=== PATIENT | female | born 1975 | race Hispanic/Latino ===

== ENCOUNTER 2016-06-09 11:26 | Emergency (ER) | payer SELFPAY ==
[~2016-06-09] VITALS: Ht 144.8 cm; Wt 73.1 kg
[~2016-06-09 11:26] MED LIST: NOMED; PREN1TAB47 PO
[2016-06-09 11:41] VITALS: BP 101/65; PULSE 75; RESP 16; O2SAT 100
--- NOTE | 2016-06-09 12:04 | ED.REPORT ---
HPI- Female Date of Service Jun 09, 2016 ED Provider: Jamaal Hughes PA-C Mary is a 40-year-old Indian-speaking female with a history of hyperlipidemia who presents with a chief complaint of vaginal pain. She reports she noted itching and burning approximately 4 days ago associated with dysuria. Yesterday she noticed "white cheese-like discharge." She has never had this before. Denies fever, chills, malaise, abdominal pain, vomiting, diarrhea, vaginal bleeding, hematuria. History gathered with the help of [employer] #[id number] as well as [employer] #[id number] Nursing Notes Stated Complaint: PRIVATE AREA HURTS AND STINGS Chief Complaint: General Complaint Nursing Notes Reviewed: No Allergies: Uncoded Allergies: NKA (Allergy, Unknown, 03/17/04) NKDA (Allergy, Unknown, 03/17/04) No Known Allergies (Allergy, Unknown, 03/17/04) Scheduled Doxycycline Hyclate (Doxycycline Hyclate) 100 Mg Tablet 100 MG PO BID General Time Seen by MD: 12:01 Chief Complaint Other (vaginal pain) Sudden in Onset?: No Past Medical History Past Medical History Denies Review of Systems Review of Systems Note: Negative unless stated otherwise in history of present illness Physical Exam General: Well appearing, well developed, obese, no acute distress. Head: Atraumatic, normocephalic. Eyes: No scleral icterus or injection. No discharge. Vision grossly intact. ENT: Voice clear, hearing grossly intact. Respiratory: Regular rate and rhythm. Breath sounds present, clear to auscultation and equal bilaterally. No respiratory distress. No increased work of breathing, speaks in complete sentences. Cardiovascular: Regular rate and rhythm, without murmur, gallop or rub. No pedal edema. Gastrointestinal: Obese abdomen non-tender without guarding or rebound. Bowel sounds normoactive. Back: Normal to inspection, mild right CVA tenderness. : Normal external genitalia, white curd-like discharge noted. Erythematous cervix, mall amount of bright red blood, copious yellow discharge. No lesions visualized. Negative cervical motion tenderness, adnexal tenderness. Normal adnexa palpated. Skin: Warm and dry. Neurological: Grossly nonfocal. Psychological: Alert and oriented. Speech appropriate, linear and logical. Behavior appropriate. Initial Vital Signs Vital Signs (First) Date Time Temp Pulse Resp B/P Pulse Ox O2 Delivery O2 Flow Rate FiO2 06/09/16 11:41 37.3 75 16 101/65 100 Room Air Initial VS: Reviewed, Vital signs normal Interpretation & Diagnostics Interpretation & Diagnostics: Wet Prep: ZULEIKA WET PREP VAG OR REC Final 06/09/16-1528 WBCS NONE SEEN YEAST NONE SEEN CLUE CELLS FEW TRICHOMONAS NONE SEEN Lab Results Interpretation Test 06/09/16 11:49 06/09/16 12:11 Urine Color Yellow (YELLOW) Urine Appearance Clear (CLEAR,HAZY) Urine pH 7.0 (5.0-8.0) Urine Specific [place] 1.024 (1.003-1.035) Urine Protein Negativemg/dL (NEG,TRACE) Urine Glucose (UA) Negativemg/dL (NEGATIVE) Urine Ketones Negativemg/dL (NEGATIVE) Urine Occult Blood Trace (NEGATIVE) Urine Nitrite Negative (NEGATIVE) Urine Bilirubin Negative (NEGATIVE) Urine Urobilinogen Normalmg/dL (NORMAL) Urine Leukocyte Esterase Moderate (NEGATIVE) Urine RBC 0-2/hpf (0-2) Urine WBC 11-50/hpf (0-5) Urine Epithelial Cells Moderate/hpf (NONE-MOD) Urine Crystals None seen (NONE SEEN) Urine Bacteria Moderate/hpf (NONE-FEW) Urine Hyaline Casts None/lpf (NONE) Urine Granular Casts None seen (NONE SEEN) Urine Waxy Casts None seen (NONE SEEN) Urine Red Blood Cell Casts None seen (NONE SEEN) Urine White Blood Cell Casts None seen (NONE SEEN) Urine Mucus None seen (None Seen) Urine Trichomonas None seen (NONE SEEN) Urine Yeast None (NONE SEEN) Urinalysis Comment None Urine Culture Reflexed Indicated Re-Eval/Medical Decision Med Decision/Clinical Course 40-year-old female presents with a chief complaint of vaginal pain. She reports itching and burning and a white cheeselike discharge. Physical examination reveals curd-like discharge on the vulva and mucopurulent discharge from the cervix. Cervix erythematous. Small amount of bright red blood. Negative cervical motion tenderness. test negative. Wet prep reveals only few clue cells. Urinalysis is positive though a moderate number of epithelial cells are present. Patient admits a question of infidelity in her relationship. I discussed this case with Dr. Pa. It seems reasonable to treat for gonorrhea and chlamydia empirically. I also treated for yeast infection. At this time I do not suspect pelvic inflammatory disease. I believe she is stable and safe for discharge to home. Counseled the patient to avoid sexual intercourse until receiving test results. Provide referral for primary care follow-up, emergency return precautions. Patient understands and agrees with the plan. Re-Evaluation/Progress : Time of Eval: 14:40 Re-Evaluation/Progress Note: Patient reports mild lower pelvic pain. No cervical motion tenderness or adnexal tenderness noted on examination. Discharge & Departure Impression: Primary Impression: Cervicitis, acute, non-specific Additional Impression: Urinary tract infection Urinary tract infection type: acute cystitis Hematuria presence: without hematuria Qualified Code: N30.00 - Acute cystitis without hematuria Disposition: Home Discharge Condition All VS Reviewed: Yes Condition: Stable Patient Instructions: Cervicitis (ED) Additional Instructions: Evaluation for vaginal discharge in the emergency department. History and physical are reassuring that this is unlikely to be an immediately dangerous medical condition. However, there is the possibility of a bacterial infection. You were given a shot of antibiotics here in the emergency department as well as treatment for a yeast infection. I will give you a prescription for antibiotic to be taken at home. Please take the doxycycline twice a day for 7 days. Please take the entire course. It appears that she will also have a urinary tract infection. The antibiotics should make that go away. I will provide you with a referral for primary care follow-up. Please contact them tomorrow to arrange an appointment to be sure this is resolving as expected. We are still waiting for some test results. We will contact you in a few days when we gets them. Please do not have sexual intercourse until we get results. If you do not hear in 4 days, please contact us at [phone]. Return to the emergency Department for any new or worsening symptoms including increasing pain in your abdomen, unusual bleeding, fever or vomiting. Referrals: Sonia Lopez MD (PCP) Kelly Burgos CNM (Family) EDSupervising Provider for APC: William Pa MD copies to: Sonia Lopez MD; Kelly Burgos CNM, Seth PA-C Jun 09, 2016 12:04 Jamaal Hughes PA-C Jun 09, 2016 12:04
[2016-06-09 12:45] LABS: APPEARANCE,URINE CLEAR (CLEAR,HAZY); COLOR,URINE YELLOW (YELLOW); OCCULT BLOOD,URINE TRACE (NEGATIVE); UROBILINOGEN,URINE NORMAL (NORMAL)
[2016-06-09] MEDS ORDERED: cefTRIAXone Inj 250 MG, Lidocaine PF 1% Inj 0.9 ML in Syringe 1 EACH IM ONE (16:25)
[2016-06-09] MEDS ORDERED: DOXY100T2 PO (16:32)
[2016-06-09 17:10] VITALS: BP 110/71; PULSE 82; RESP 16; O2SAT 100
[2016-06-09 17:13] VITALS: BP 110/71; PULSE 82; RESP 16; O2SAT 100
== END 2016-06-09 17:34 | disposition home or self-care (01) ==
LOC: SED 11:26
DX: N72 Inflammatory disease of cervix uteri (principal); N30.00 Acute cystitis without hematuria; E78.5 Hyperlipidemia, unspecified
CPT/HCPCS: 81000; 81025; 87086; 87088; 87210; 87491; 87591; 96372; 99284; J0696